=== PATIENT | female | born 1995 | race Caucasian/White ===

== ENCOUNTER 2018-09-24 03:37 | Emergency (ER) | payer OTHER ==
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
[2018-09-24] MEDS ORDERED: ONDANSETRON 4 MG/2 ML VIAL IVP ONE (04:05)
[2018-09-24 04:30] VITALS: BP 104/72
[2018-09-24] MEDS ORDERED: EMS NS 0.9%(*) 1000 ML BAG 1,000 ML IV ONE (04:40)
== END 2018-09-24 04:48 | disposition home or self-care (01) ==
LOC: ER 03:56
DX: F10.920 Alcohol use, unspecified with intoxication, uncomplicated (principal)
CPT/HCPCS: 96361; 96374; 99283; J2405

== ENCOUNTER 2018-09-24 11:31 | Emergency (ER) | payer OTHER ==
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
[2018-09-24 12:17] LABS: PLATELET COUNT, AUTOMATED 343 K/uL (150-450)
[2018-09-24 13:06] VITALS: BP 98/63
== END 2018-09-24 13:05 | disposition home or self-care (01) ==
LOC: ER 11:40
DX: Z77.29 Contact with and (suspected) exposure to other hazardous substances (principal)
CPT/HCPCS: 36415; 80305; 80357; 80375; 82310; 82374; 82435; 82565; 82947; 84132; 84295; 84520; 84703; 85025; 99283

== ENCOUNTER → 2018-09-24 | Outpatient (CLI) | payer OTHER | LOC: AMB 03:20 | PROVIDERS: ATTEND Nurse Practitioner | DX: R41.82 Altered mental status, unspecified (principal); R53.83 Other fatigue; F41.9 Anxiety disorder, unspecified | CPT/HCPCS: A0425; A0427 ==

== ENCOUNTER → 2018-10-27 | Outpatient (CLI) | payer OTHER | LOC: LAB 13:59 | PROVIDERS: ATTEND Obstetrics & Gynecology | DX: Z11.3 Encounter for screening for infections with a predominantly sexual mode of transmission (principal) | CPT/HCPCS: 36415; 86592; 86703; 87340 ==